=== PATIENT | female | born 1970 | race Caucasian/White ===

== ENCOUNTER 2022-07-08 06:26 | Day surgery (SDC) | payer BC, SELFPAY ==
[2022-07-08] VITALS (10 sets, daily range): BP systolic 120–139; BP diastolic 80–87; PULSE 89–100; RESP 12–16; TEMP 36.3–36.9; O2SAT 97–100; BMI 34.9
[2022-07-08] MEDS: LIDOCAINE 1% MDV INJECTION (07:05)
[2022-07-08] MEDS: BUPIVACAINE 0.5% 30 ML INJECTION (07:05)
[2022-07-08] MEDS: ETHYL CHLORIDE 1 APPLICATION 1 APPLIC TOPICAL (07:05)
--- NOTE | 2022-07-08 07:49 | SUR.PREOP ---
SAME DAY SURGERY LOCAL INJECTION SITE VERIFICATION WAS PERFORMED BY SURGEON/PA AND PATIENT PRIOR TO LOCAL ANESTHETIC BEING INJECTED TO OPERATIVE SITE.
--- NOTE | 2022-07-08 08:02 | PM.ORPRC ---
Procedure Note Date of procedure: 07/08/22 Procedure: PREOPERATIVE DIAGNOSIS: 1. Right 2nd toe benign mass/cyst (suspect mucous cyst) POSTOPERATIVE DIAGNOSIS: 1. Right 2nd toe benign mass/cyst (suspect mucous cyst) PROCEDURE: 1. Right 2nd toe benign mass/cyst open excision (less than 1 sq cm) 2. Right 2nd toe Rotation flap for skin coverage where cyst was excised (less than 10 sq cm) SURGEON: Gael Davila MD. ARCHITECTURAL TECHNOLOGIST: HEENA Balderas - Of note, an political science research assistant was critical for this case to aid in patient positioning, tissue retraction, limb manipulation/positioning, and closure. ANESTHESIA: Local anesthetic (50:50 mixture of 2% lidocaine plain and 0.5% marcaine plain)-8 mL total IMPLANTS: None TOURNIQUET: 15 minutes of digital tourniquet use COMPLICATIONS: None evident INDICATIONS: The patient is a pleasant 52-year-old female who has experienced right dorsal 2nd toe cyst recurrence. This has spontaneously ruptured in the past with the gelatinous fluid. Now, the cyst has recurred and is both the somewhat painful bother while wearing shoes but also an annoyance for the patient. Nonoperative management has been tried but unsuccessful. Given the failure of nonoperative management, and how this affects daily life, surgery was recommended. DESCRIPTION OF PROCEDURE: Following a thorough discussion of risks, benefits, and alternatives consent was obtained and the operative extremity was marked. The patient was brought to the operating room and placed supine on the operating table. No antibiotics were administered as this was planned to be a local case only. Proper time-out was performed identifying proper patient, site, and procedure. The operative extremity was prepped and draped in the appropriate sterile fashion using ChloraPrep. The limb was exsanguinated and the tourniquet inflated. A curvilinear incision was made along the medial border of the 2nd toe arcing then transversely across the D IP joint region. The cyst was then excised in a pie she manner with the apex of the pie aiming towards the concave surface of the curvilinear incision base. The excised portion was less than 1 sq cm. This was sent for permanent pathology. We mobilize the rotation flap on the dorsal aspect of the toe to help with skin coverage, which measured approximately 2.5 sq cm. Beyond this, we identified the extensor tendon and protected this throughout the case. Just medial to this the capsule was entered sharply with a 15 blade scalpel. A rongeur was also utilized to help debride some of capsular tissue in the medial aspect but also the dorsal medial aspect of the PIP joint. A rasp was utilized to smooth this off as well. Indeed a mucous gelatinous type of cystic structure was encountered at this level and decompressed. Thorough irrigation normal saline was then performed. Closure performed with 3-0 nylon in interrupted fashion. The digital tourniquet was released. Good capillary refill noted. Hemostasis achieved. PLAN: 1. Encourage elevation of the operative extremity. 2. Range of motion of the operative extremity/digits as tolerated. 3. Ibuprofen, acetaminophen and/or percocet as needed for pain. 4. Follow up with PA visit in 12-16 days for wound check and suture removal.
== END 2022-07-08 08:24 | disposition home or self-care (01) ==
PROVIDERS: PCP Family Medicine; Visit Provider Orthopaedic Surgery Sports Medicine
PROC: (CPT 26860; principal; 2022-07-08 07:30)
DX: L72.8 Other follicular cysts of the skin and subcutaneous tissue (principal)
CPT/HCPCS: 14040; 88304; J3490

== ENCOUNTER 2023-05-05 14:30 | Outpatient (RCR) | payer BC, SELFPAY | END 2023-06-24 14:33 | disposition home or self-care (01) | PROVIDERS: PCP Family Medicine; Visit Provider Family Medicine | DX: M54.2 Cervicalgia (principal); M62.81 Muscle weakness (generalized); Z51.89 Encounter for other specified aftercare | CPT/HCPCS: 97140; 97161 ==

== ENCOUNTER 2023-11-17 07:46 | Outpatient (CLI) | payer BC, SELFPAY ==
--- OUTSIDE RECORDS SUMMARY | 2023-11-22 05:21 | XMS_ITS | Clinical Summary ---
Author Name Unknown Organization [employer] [facility] Address [place], [place] [address] Care Team Providers Care Can Labeler Name Role Phone Pcp, No Primary Care Provider Unavailabl e Family History Medical History Relation Name Comments Cancer-breast No Family History Cancer-ovarian No Family History Social History Tobacco Use Types Packs/Day Years Used Date Smoking Tobacco: Never Assessed Sex and Gender Information Value Date Recorded Sex Assigned at Not on file Gender Identity Not on file Sexual Orientation Not on file Obstetrics History Plan of Treatment Health Maintenance Due Date Last Done Comments COVID-19 vaccine series (#1) 1971 Tdap 1982 Depression screening for age 12+ 1983 HIV for age 15-65 1986 BMI (ht and wt on same day) for age 18+ 1989 Hepatitis C screening for age 18-79 1989 Tetanus booster 1991 Colonoscopy through age 75 02/29/2016 Lipids for age 45-75 02/29/2016 Mammogram for age 45-75 11/16/2018 11/16/2017 Zoster (shingles) series for age 50+ (1 of 2) 2021 Pap test for age 21-65 07/11/2022 9, 07/11/2019, 06/18/2015, Additional history exists Influenza for age 50-64 07/09/2023 Pneumococcal series for age 6-64 Aged Out No longer eligible based on patient's age to complete this topic Care Teams Can Labeler Relationship Specialty Start Date End Date Pcp, No . PCP - General 07/19/12
--- OUTSIDE RECORDS SUMMARY | 2023-11-22 05:21 | XMS_ITS | Encounter Summary ---
Author Name Unknown Organization [facility] Address [address], [place] [address] Care Team Providers Care Food Service Team Member Name Role Phone Nicolás Fuentes MD Primary Care Provider Reason for Visit * Reason Comments Video Visit Band Surg Followup Follow-up BOT / MWM Encounter Details Date Type Department Care Team Description 10/27/2023 10:30 AM CUT OFF WORKER Telemedicine [facility] [address] [place], [place] [id number] Gopal Luna PA-C [address] [facility] [address] [place], [place] [phone] Depressive disorder (Primary Dx); Obesity (BMI 30-39.9) ([facility]); Abnormal weight gain; Personal history of endocrine disorder; Screening for diabetes mellitus Social History Tobacco Use Types Packs/Day Years Used Date Smoking Tobacco: Never Smokeless Tobacco: Never Alcohol Use Standard Drinks/Week Comments Yes 7 (1 standard drink = 0.6 oz pur e alcohol) Sex and Gender Information Value Date Recorded Sex Assigned at Not on file Gender Identity Not on file Sexual Orientation Not on file documented as of this encounter Last Filed Vital Signs Vital Sign Reading Time Taken Comments Blood Pressure - - Pulse - - Temperature - - Respiratory Rate - - Oxygen Saturation - - Inhaled Oxygen Concentration - - Weight 104.3 kg (230 lb) 10/27/2023 9:19 AM CUT OFF WORKER Height 170.2 cm (5' 7) 10/27/2023 9:19 AM CUT OFF WORKER Body Mass Index 36.02 10/27/2023 9:19 AM CUT OFF WORKER documented in this encounter Patient Instructions * Patient Instructions* Gopal Luna PA-C - 10/27/2023 10:30 AM CUT OFF WORKER Weight Management Lab Instructions- Please have these done at least 1 week prior to your next weight follow up. Instructions for lab draws include the following: No vitamins or supplements for 24 hours prior to the test No alcohol for 24 hours prior to the test You must fast (no food or fluids other than water) for 12 hours prior to the test. You may call [phone] to schedule a lab appointment; however, the labs do allow walk-in visits. OFF WORKER documented in this encounter Progress Notes * Gopal Luna PA-C - 10/27/2023 10:30 AM CST Lap Band Post-Operative Follow Up Date of Visit: 10/27/2023 This visit was conducted as telehealth visit using a synchronous audiovideo link. SUBJECTIVE: This 53 y.o. year-old female with chronic medical problems including obesity, history of depressionpresents for routine postoperative followup status post Adjustable Gastric Band. Patient was last seen in November 2020.She had been taking phentermine and topiramate and had also briefly worked with bariatric psychologist for emotional aspects of eating. Patient returns to resume work on weight loss. She typically does not eat breakfast. She will bring healthy food options for lunch at work. Dinner is sometimes more snacking than an actual meal. Patient reports drinking 2-3 glasses of wine daily. She takes bupropion 300 mg for depression. Discussed medication options and potential conversion s urgery. Patient is open to another surgery now. Patient's lap band is empty, and she denies any symptoms of band complications. Bariatric Weight History and Calculations Weight History Starting Weight: 271 lb 14.4 oz Current Weight: 230 lb Height (in): 67 Weight Calculations Excess Weight: 127 lb 6.4 oz Current Weight Loss: 41 lb 14.4 oz Goal Weight: 144 lb 8 oz Starting BMI: 42.67 Percent Exess Weight Loss: 33 Current BMI: 36.1 Percent Totoal Body Weight Loss: 15 Date of Original Surgery: 03/08/2008 Type of Original Surgery: APS band Date of Revisional surgery: Type: None Focuses on eating protein at most meals: Yes Fluid intake averages 48-64 oz oz per day. Exercise: What are you doing for exercise?: Walking, Other Physical activity: I haven't been doing a lot. The goal is to increase this REVIEW OF SYSTEMS: Patient is experiencing the following symptoms/problems: Emotional Eating, Joint Pain PAST MEDICAL HISTORY: Past Medical History: Diagnosis Date Laparoscopic adjustable gastric band, APS 03/08/2008 Laparoscopic adjustable gastric band, APS 03/08/2008 Overweight(278.02) ([facility]) 11/05/2011 MEDICATIONS: cholecalciferol (AKA VITAMIN D3) 2000 UNITS tablet, Take 1,000 Tablets by mouth Daily., , Disp: , Rfl: levothyroxine (SYNTHROID) 137 MCG tablet, Take 137 mcg by mouth daily., Note (05/26/2017): Received from: External Pharmacy Received Sig: TAKE ONE TABLET BY MOUTH DAILY, Disp: , Rfl: 3 Multiple Vitamins-Minerals (THERAPEUTIC MULTIVIT/MINERAL) tablet, Take 1 tablet by mouth daily (every 24 hours). (Patient not taking: Reported on 09/13/2020), , Disp: 100, Rfl: Phentermine HCl (ADIPEX-P) 37.5 MG tablet, Take 0.5 Tablets by mouth daily before breakfast., , Disp: 60 Tablet, Rfl: 0 topiramate (TOPAMAX) 50 MG tablet, TAKE 1 TABLET BY MOUTH TWICE DAILY, , Disp: 180 Tablet, Rfl: 0 venlafaxine (EFFEXORXR) 37.5 MG 24 hour release capsule, TAKE 1 CAPSULE (37.5 MG) PO DAILY, Note (08/06/2017): Received from: External Pharmacy, Disp: , Rfl: 0 No current facility-administered medications on file as of 10/27/2023. ADR/ALLERGIES: Other, Review contrast media, and Review food intolerance SOCIAL HISTORY: Social History Socioeconomic History Marital status: Single Spouse name: Not on file Number of children: Not on file Years of education: Not on file Highest education level: Not on file Occupational History Not on file Tobacco Use Smoking status: Never Smokeless tobacco: Never Vaping Use Vaping Use: Never used Substance and Sexual Activity Alcohol use: Yes Alcohol/week: 7.0 - 14.0 standard drinks of alcohol Types: 7 - 14 Glasses of wine per week Drug use: No Sexual activity: Not on file Other Topics Concern Bike Helmet Not Asked City Water Not Asked Exercise Not Asked Guns in home Not Asked Seat Belt Not Asked Special Diet Not Asked Weight Concern Not Asked Social History Narrative Not on file Social Determinants of Health Financial Resource Strain: Not on file Food Insecurity: Not on file Transportation Needs: Not on file Intimate Partner Violence: Not on file Housing Stability: Not on file Patient Employment Employer: Address: City: State: Zip: Phone: Occupation: Employee?: No OBJECTIVE: Ht 5' 7 (170.2 cm) Wt 230 lb (162857 g) BMI 36.02 kg/m?? BMI: Estimated body mass index is 36.02 kg/m?? as calculated from the following: Height as of this encounter: 5' 7 (170.2 cm). Weight as of this encounter: 230 lb (478404 g). Vital Signs: There were no vitals taken for this visit. (Vitals not measured in clinic due to nature of telehealth visit). General: NAD Respiratory: No distress is noted Psych: No evidence of overt anxiety or depression. Skin: No rashes on exposed skin LABORATORY STUDIES: None are available at the time of appointment. Band adjustment section Adjustment None date of last adjustment: 09/20/20 amount volume after last adjustment: 0 ml ASSESSMENT: We will continue to treat the patient's obesity, obesity-associated medical conditions, and conditions exacerbated by or contributing to weight gain by aggressive management of weight: ICD-10-CM 1. Depressive disorder F32.A 2. Obesity (BMI 30-39.9) ([facility]) E66.9 3. Abnormal weight gain R63.5 Insulin, Serum Hgb A1c Glucose 4. Personal history of endocrine disorder Z86.39 Insulin, Serum 5. Screening for diabetes mellitus Z13.1 Hgb A1c Glucose Plan Insurance benefit verification mailed to patient to determine coverage for potential conversion surgery Patient will consider RD appointment Naltrexone 25 mg daily - side effects discussed Will screen for diabetes/prediabetes Return to the clinic in 3 months, sooner p.r.n. problems or concerns. Patient is especially encouraged to return to the clinic if failing to lose further weight. At the beginning of the visit, I discussed with the patient/parent that this visit is a telehealth visit that will be billed to their insurance. I reviewed potential benefits, risks, and confidentiality of telehealth visits. We made a contingency plan in the event of technical problems. I explainedthat the appropriateness of telehealth visits is determined by the provider and that patient may need to be seen in clinic in the future. They consented to proceed. This service was provided via telehealth and conducted using a synchronous audiovideo link. Patient location: home Provider location: clinic Total time for visit was 30 minutes including rkn-[id number]-[id number]-face time spent reviewing medical records, counseling, documentation, placing orders, and coordination of care. Gopal Luna PA-C OFF WORKER documented in this encounter Nursing Notes * Eze Wilkinson MA - 10/27/2023 10:30 AM CST Patient has completed mobile check in process. Last seen on 12/04/20 with recorded weight of 202 lbs. Weight History: Bariatric Weight History and Calculations Weight History Starting Weight: 271 lb 14.4 oz Current Weight: 230 lb Height (in): 67 Weight Calculations Excess Weight: 127 lb 6.4 oz Current Weight Loss: 41 lb 14.4 oz Goal Weight: 144 lb 8 oz Starting BMI: 42.67 Percent Exess Weight Loss: 33 Current BMI: 36.1 Percent Totoal Body Weight Loss: 15 Measurements Do you have a scale? YES - 230 lb. Do you have a BP cuff? NO Eating patterns Patient is experiencing the following symptoms/problems: Emotional Eating, Joint Pain Medications: Compliance: NA Side effects: NO Patient would like to discuss: Options for medications Eze Wilkinson MA 9:20 AM 10/27/2023 OFF WORKER documented in this encounter Plan of Treatment Upcoming Encounters Date Type Department Care Team Description 01/18/2024 2:40 PM CDT Telemedicine [facility] [address] [facility] [address] [address] [place] [address] Gopal Luna PA-C [address] [facility] [address] [place] [address] Scheduled Orders Name Type Priority Associated Diagnoses Orde r Schedule Insulin, Serum Lab Routine Abnormal weight gain Personal history of endocrine disorder Expected: 10/27/2023, Expires: 04/27/2024 Hgb A1c Lab Routine Abnormal weight gain Screening for diabetes mellitus Expected: 10/27/2023, Expires: 04/27/2024 Glucose Lab Routine Abnormal weight gain Screening for diabetes mellitus Expected: 10/27/2023, Expires: 04/27/2024 documented as of this encounter Visit Diagnoses Diagnosis Depressive disorder- Primary Depressive disorder, not elsewhere classified Obesity (BMI 30-39.9) ([facility]) Obesity, unspecified Abnormal weight gain Personal history of endocrine disorder Personal history of other endocrine, metabolic, and immunity disorders Screening for diabetes mellitus documented in this encounter Care Teams Food Service Team Member Relationship Specialty Start Date End Date Nicolás [place] [address] [place] [address] PCP - General 02/07/11 documented as of this encounter
--- OUTSIDE RECORDS SUMMARY | 2023-11-22 05:21 | XMS_ITS | Clinical Summary ---
Author Name Unknown Organization [facility] Address [address] [place] [address] Care Team Providers Care Boat Motor Mechanic Name Role Phone Nicolás Fuentes MD Primary Care Provider Source Comments You are receiving this document as you are listed as the primary care provider,follow-up provider, or the patient has been referred to you for consultation.This is in compliance with the Medicare and[facility] EHR Incentive Program,which states Providers who transition their patient to another setting of careor provider of care or refers their patient to another provider of care shouldprovide summary care record for each transition of care or referral. [facility] Allergies Active Allergy Reactions Criticality Noted Date Comments Other 03/28/1996 PN: LW Other1: -NKA Review Contrast Media 03/28/1996 PN: LW CM1: CONTRAST- NKA Reaction : Review Food Intolerance 09/11/2010 PN: LW FI1: NKA Medications Medication Sig Dispensed Refills Start Date End Date Status Multiple Vitamins-Minerals (THERAPEUTIC MULTIVIT/MINERAL) tablet Take 1 tablet by mouth daily (every 24 hours). 100 0 09/11/2010 Active cholecalciferol (AKA VITAMIN D3) 2000 UNITS tablet Take 1,000 Tablets by mouth Daily. 0 02/01/2013 Active levothyroxine (SYNTHROID) 137 MCG tablet Take 137 mcg by mouth daily. 3 04/05/2017 Active venlafaxine (EFFEXORXR) 37.5 MG 24 hour release capsule TAKE 1 CAPSULE (37.5 MG) PO DAILY 0 07/09/2017 Active Phentermine HCl (ADIPEX-P) 37.5 MG tablet Take 0.5 Tablets by mouth daily before breakfast. 60 Tablet 0 01/07/2021 Active topiramate (TOPAMAX) 50 MG tablet TAKE 1 TABLET BY MOUTH TWICE DAILY 180 Tablet 0 03/03/2021 Active naltrexone (REVIA) 50 MG tablet Take 0.5 Tablets (25 mg) by mouth daily. 45 Tablet 1 10/27/2023 Active Active Problems Problem Noted Date Diagnosed Date Overweight 11/05/2011 Overview: Overweight(278.02) ([facility]) Bariatric surgery status 03/08/2008 Overview: Demetrius Pedro M.D. at [facility] [place] Laparoscopic adjustable gastric band, APS Encounters Date Type Department Care Team Description 10/27/2023 10:30 AM PULMONARY FUNCTION TECHNOLOGIST Telemedicine [facility] [address] [place] [address] [address] [place] [address] Gopal Luna PA-C Depressive disorder (Primary Dx); Obesity (BMI 30-39.9) ([facility]); Abnormal weight gain; Personal history of endocrine disorder; Screening for diabetes mellitus from Last 3 Months Immunizations Name Administration Dates Next Due Measles 02/21/1986 Rubella 02/21/1986 Social History Tobacco Use Types Packs/Day Years Used Date Smoking Tobacco: Never Smokeless Tobacco: Never Alcohol Use Standard Drinks/Week Comments Yes 7 (1 standard drink = 0.6 oz pur e alcohol) Sex and Gender Information Value Date Recorded Sex Assigned at Not on file Gender Identity Not on file Sexual Orientation Not on file Last Filed Vital Signs Vital Sign Reading Time Taken Comments Blood Pressure 135/92 10/22/2020 8:29 AM PULMONARY FUNCTION TECHNOLOGIST per record from outside facililty Pulse 80 10/22/2020 8:29 AM PULMONARY FUNCTION TECHNOLOGIST Temperature - - Respiratory Rate - - Oxygen Saturation - - Inhaled Oxygen Concentration - - Weight 104.3 kg (230 lb) 10/27/2023 9:1 9 AM PULMONARY FUNCTION TECHNOLOGIST Height 170.2 cm (5' 7) 10/27/2023 9:19 AM PULMONARY FUNCTION TECHNOLOGIST Body Mass Index 36.02 10/27/2023 9:19 AM PULMONARY FUNCTION TECHNOLOGIST Plan of Treatment Upcoming Encounters Date Type Department Care Team Description 01/18/2024 2:40 PM CDT Telemedicine [facility] [address] [facility] [address] [facility] [place] [address] Gopal Luna PA-C [address] [facility] [address] [place] [address] Health Maintenance Due Date Last Done Comments Cervical Cancer Screening Due 1971 Colon Cancer Screening Plan Due 1971 Hep C Screening ([facility]) 1971 HepB (1) 1971 Mammogram 1971 COVID-19 Vaccine (#1) 1971 HIV Screening (Preventive Services) 1987 Adult Preventive Visit 1989 Diabetes Screening- (based on age and BMI) 02/02/2016 02/01/2013, 09/11/2010 Cholesterol 02/29/2016 Influenza (#1) 2023 11/17/2023, 01/2021, 09/10/2021, Additional history exists DTaP/Tdap/Td (4 - Tdap) 03/26/2031 03/26/20, 09/25/2019, 01/30/2010 Zoster/Shingles Completed 12/04/2021, 09/10/2021 HepA Aged Out No longer eligi ble based on patient's age to complete this topic Hib Aged Out No longer eligi ble based on patient's age to complete this topic IPV (Polio) Aged Out No longer eligi ble based on patient's age to complete this topic MCV4 Aged Out No longer eligi ble based on patient's age to complete this topic Pneumococcal Aged Out No longer eligi ble based on patient's age to complete this topic Care Teams Boat Motor Mechanic Relationship Specialty Start Date End Date Nicolás [place] [address] [address] PCP - General 02/07/11
== END 2023-11-17 07:47 | disposition home or self-care (01) ==
LOC: NFLDREF 11-22 05:19
PROVIDERS: PCP Family Medicine; Referring Provider Family Medicine; Visit Provider Family Medicine
DX: E03.9 Hypothyroidism, unspecified (principal); E55.9 Vitamin D deficiency, unspecified; E78.5 Hyperlipidemia, unspecified; M81.0 Age-related osteoporosis without current pathological fracture; Z13.9 Encounter for screening, unspecified
CPT/HCPCS: 80053; 80061; 82306; 84443

== ENCOUNTER 2023-12-03 11:35 | Outpatient (CLI) | payer BC, SELFPAY ==
--- OUTSIDE RECORDS SUMMARY | 2023-12-03 11:37 | XMS_ITS | Encounter Summary ---
Author Name Unknown Organization [facility] Address [address], [place] [address] Care Team Providers Care Metal Loader Name Role Phone Nicolás Fuentes MD Primary Care Provider Reason for Visit * Reason Comments Video Visit Band Surg Followup Follow-up BOT / MWM Encounter Details Date Type Department Care Team Description 10/27/2023 10:30 AM STRETCHER LEVELER OPERATOR HELPER Telemedicine [facility] [address] [facility] [facility] [address] [place], [place] [phone] Gopal Luna PA-C [address] [facility] [address] [place], [place] [id number] Depressive disorder (Primary Dx); Obesity (BMI 30-39.9) [...] 104.3 kg (230 lb) 10/27/2023 9:19 AM STRETCHER LEVELER OPERATOR HELPER Height 170.2 cm (5' 7) 10/27/2023 9:19 AM STRETCHER LEVELER OPERATOR HELPER Body Mass Index 36.02 10/27/2023 9:19 AM STRETCHER LEVELER OPERATOR HELPER documented in this encounter Patient Instructions * Patient Instructions* Gopal Luna PA-C - 10/27/2023 10:30 AM STRETCHER LEVELER OPERATOR HELPER Weight Management Lab Instructions- Please have these [...] prior to the test. You may call [phone] to schedule a lab appointment; however, the labs do allow walk-in visits. TCHER LEVELER OPERATOR HELPER documented in this encounter Progress Notes * [...] 5' 7 (170.2 cm) Wt 230 lb (726556 g) BMI 36.02 kg/m?? BMI: Estimated body mass index is 36.02 kg/m?? as calculated from the following: Height as of this encounter: 5' 7 (170.2 cm). Weight as of this encounter: 230 lb (494815 g). Vital Signs: There were no vitals [...] Depressive disorder F32.A 2. Obesity (BMI 30-39.9) ([facility]) E66.9 3. Abnormal weight gain R63.5 [...] time for visit was 30 minutes including [id number]-face time spent reviewing medical records, counseling, documentation, placing orders, and coordination of care. Gopal Luna PA-C TCHER LEVELER OPERATOR HELPER documented in this encounter Nursing Notes * [...] medications Eze Wilkinson MA 9:20 AM 10/27/2023 TCHER LEVELER OPERATOR HELPER documented in this encounter Plan of Treatment Upcoming Encounters Date Type Department Care Team Description 01/18/2024 2:40 PM CDT Telemedicine [facility] [address] [facility] [address] [place] [address] Gopal Luna PA-C [address] [facility] [address] [place] [address] Scheduled Orders Name Type Priority Associated Diagnoses [...] disorder, not elsewhere classified Obesity (BMI 30-39.9) ([facility]) Obesity, unspecified Abnormal weight gain Personal history of endocrine disorder Personal history of other endocrine, metabolic, and immunity disorders Screening for diabetes mellitus documented in this encounter Care Teams Metal Loader Relationship Specialty Start Date End Date Nicolás [place] [address] [place] [address] PCP - General 02/07/11 documented as of this encounter
--- OUTSIDE RECORDS SUMMARY | 2023-12-03 11:37 | XMS_ITS | Clinical Summary ---
Author Name Unknown Organization [employer] [facility] Address [place], [place] [address] Care Team Providers Care Infantry Assaultman Name Role Phone Pcp, No Primary Care [...] age to complete this topic Care Teams Infantry Assaultman Relationship Specialty Start Date End Date Pcp, No . PCP - General 07/19/12
--- OUTSIDE RECORDS SUMMARY | 2023-12-03 11:37 | XMS_ITS | Clinical Summary ---
Author Name Unknown Organization [facility] Address [address] [place] [address] Care Team Providers Care Silk Top Hat Body Maker Name Role Phone Nicolás Fuentes MD Primary Care Provider Source Comments You are receiving this document as you are listed as the primary care provider,follow-up provider, or the patient has been referred to you for consultation.This is in compliance with the Medicare and[facility] EHR Incentive Program,which states Providers who transition their patient to another setting of careor provider of care or refers their patient to another provider of care shouldprovide summary care record for each transition of care or referral. Coinplug Allergies Active Allergy Reactions Criticality Noted Date [...] Date Diagnosed Date Overweight 11/05/2011 Overview: Overweight(278.02) ([facility]) Bariatric surgery status 03/08/2008 Overview: Demetrius Pedro M.D. at [facility] ; Laparoscopic adjustable gastric band, APS Encounters Date Type Department Care Team Description 10/27/2023 10:30 AM GENETICS NURSE Telemedicine [facility] [address] [place] [address] [address] [place] [address] Gopal Luna PA-C Depressive disorder (Primary Dx); Obesity (BMI 30-39.9) ([facility]); Abnormal weight gain; Personal history of endocrine [...] Comments Blood Pressure 135/92 10/22/2020 8:29 AM GENETICS NURSE per record from outside facililty Pulse 80 10/22/2020 8:29 AM GENETICS NURSE Temperature - - Respiratory Rate - - Oxygen Saturation - - Inhaled Oxygen Concentration - - Weight 104.3 kg (230 lb) 10/27/2023 9:1 9 AM GENETICS NURSE Height 170.2 cm (5' 7) 10/27/2023 9:19 AM GENETICS NURSE Body Mass Index 36.02 10/27/2023 9:19 AM GENETICS NURSE Plan of Treatment Upcoming Encounters Date Type Department Care Team Description 01/18/2024 2:40 PM CDT Telemedicine [facility] [address] [facility] [place] [address] Gopal Luna PA-C [address] [facility] [address] [place] [address] Health Maintenance Due Date Last Done Comments Cervical Cancer Screening Due 1971 Colon Cancer Screening Plan Due 1971 Hep C Screening (Preventive Services) 1971 HepB (1) 1971 Mammogram 1971 COVID-19 Vaccine (#1) 1971 HIV Screening (Preventive Services) 1987 Adult Preventive Visit 1989 Diabetes Screening- (based on age and BMI) 02/02/2016 02/01/2013, 09/11/2010 Cholesterol 02/29/2016 DTaP/Tdap/Td (4 - Tdap) 03/26/2031 03/26/20 21, 09/25/2019, 01/30/2010 Zoster/Shingles Completed 12/04/2021, 09/10/2021 Influenza Completed 11/17/2023, 01/2021, 09/10/2021, Additional history exists HepA Aged Out No longer eligi ble [...] age to complete this topic Care Teams Silk Top Hat Body Maker Relationship Specialty Start Date End Date Nicolás [place] [address] [address] PCP - General 02/07/11
--- NOTE | 2023-12-03 12:34 | W.ANESCHARGE ---
Anesthesia Charges Start Date/Time Anesthesia Start Date: 12/03/23 Anesthesia Start Time: 12:18 Stop Date/Time Anesthesia Stop Date: 12/03/23 Anesthesia Stop Time: 12:36
--- NOTE | 2023-12-03 12:39 | W.ANESCHARGE ---
Anesthesia Charges Start Date/Time Anesthesia Start Date: 12/03/23 Anesthesia Start Time: 12:18 Stop Date/Time Anesthesia Stop Date: 12/03/23 Anesthesia Stop Time: 12:36
== END 2023-12-03 11:36 | disposition home or self-care (01) ==
LOC: OP CLINIC 11:35
PROVIDERS: PCP Family Medicine; Visit Provider Internal Medicine
DX: Z12.11 Encounter for screening for malignant neoplasm of colon (principal); K57.30 Diverticulosis of large intestine without perforation or abscess without bleeding
CPT/HCPCS: 00811; 00812; 45378; J2704

== ENCOUNTER 2024-02-01 14:51 | Outpatient (CLI) | payer BC, SELFPAY ==
--- NOTE | 2024-02-01 15:00 | MM_ITS ---
Patient: CARMELITA LOWE Facility:?[facility] Patient ID:?[id number] Site Patient ID:?[id number]. Site :?1970 Study:?XRay-Breast Bilateral 3D W/CAD-02/01/2024 3:17:37 PM Ordering Physician:?Catrachita Arnold Final Report: BILATERAL SCREENING MAMMOGRAM WITH COMPUTER-AIDED DETECTION AND TOMOSYNTHESIS TECHNIQUE: CC and MLO views were obtained. These mammographic images have been obtained using full-field digital technique. These mammographic images were interpreted with the benefit of computer-aided detection. Breast Tomosynthesis was used in this interpretation. COMPARISON FILM: 10/07/21, 09/06/20, 07/25/19. FINDINGS: There are scattered areas of fibroglandular density. IMPRESSION: There is no radiographic evidence for malignancy. ASSESSMENT: BI-RADS Category 2: Benign RECOMMENDATION: Routine screening mammogram in 1 year. A lay language report of this examination will be provided to the patient. Joe Gann M.D. Diagnostic Radiologist [email or web address] DSM/sp R& Transcribed: 5:10 p.m. SP/Dictated by: Joe Gann MD @ 02/10/2024 10:51:00 AM Signed by:?Joe Gann MD @02/10/2024 8:24:32 PM (Electronic Signature)
== END 2024-02-01 14:52 | disposition home or self-care (01) ==
LOC: MAMMO 14:51
PROVIDERS: PCP Family Medicine; Visit Provider Family Medicine
DX: Z12.31 Encounter for screening mammogram for malignant neoplasm of breast (principal)
CPT/HCPCS: 77063; 77067

== ENCOUNTER 2024-03-01 08:11 | Outpatient (CLI) | payer BC, SELFPAY ==
--- OUTSIDE RECORDS SUMMARY | 2024-03-01 08:17 | XMS_ITS | Clinical Summary ---
Author Name Unknown Organization [facility] Address [address] [place] [address] Care Team Providers Care Hollock Maker Name Role Phone Nicolás Fuentes MD Primary Care Provider Source Comments You are receiving this document as you are listed as the primary care provider,follow-up provider, or the patient has been referred to you for consultation.This is in compliance with the Medicare and[facility] EHR Incentive Program,which states Providers who transition their patient to another setting of careor provider of care or refers their patient to another provider of care shouldprovide summary care record for each transition of care or referral. [place] Allergies Active Allergy Reactions Criticality Noted Date Comments Other 03/28/1996 PN: LW Other1: -NKA Review Contrast Media 03/28/1996 PN: LW CM1: CONTRAST- NKA Reaction : Review Food Intolerance 09/11/2010 PN: LW FI1: NKA Medications Medication Sig Dispensed Refills Start Date End Date Status Multiple Vitamins-Minerals (THERAPEUTIC MULTIVIT/MINERAL) tablet Take 1 tablet by mouth daily (every 24 hours). 100 09/11/2010 Active cholecalciferol (AKA VITAMIN D3) 2000 UNITS tablet Take 1,000 Tablets by mouth Daily. 02/01/2013 Active levothyroxine (SYNTHROID) 137 MCG tablet Take 1 Tablet (137 mcg) by mouth daily. 3 04/05/2017 Active venlafaxine (EFFEXORXR) 37.5 MG 24 hour release capsule TAKE 1 CAPSULE (37.5 MG) PO DAILY 0 07/09/2017 Active Phentermine HCl (ADIPEX-P) 37.5 MG tablet Take 0.5 Tablets by mouth daily before breakfast. 60 Tablet 01/07/2021 Active topiramate (TOPAMAX) 50 MG tablet TAKE 1 TABLET BY MOUTH TWICE DAILY 180 Tablet 03/03/2021 Active naltrexone (REVIA) 50 MG tablet Take 1 Tablet (50 mg) by mouth daily. 90 Tablet 1 01/18/2024 Active Active Problems Problem Noted Date Diagnosed Date Overweight 11/05/2011 Overview: Overweight(278.02) ([facility]) Bariatric surgery status 03/08/2008 Overview: Demetrius Pedro M.D. at [facility] ; Laparoscopic adjustable gastric band, APS Encounters Date Type Department Care Team Description 01/18/2024 2:40 PM CDT Telemedicine [facility] [address] [facility] [address] [place] [address] Gopal Luna PA-C Depressive disorder (Primary Dx); Obesity (BMI 30-39.9) ([facility]); LAP-BAND surgery status 01/17/2024 E-Visit [facility] [address] [place] [address] [address] Mychart, Generic Provider from Last 3 Months Immunizations Name Administration [...] Comments Blood Pressure 135/92 10/22/2020 8:29 AM AFTER SCHOOL PROGRAM ASSISTANT per record from outside facililty Pulse 80 10/22/2020 8:29 AM AFTER SCHOOL PROGRAM ASSISTANT Temperature - - Respiratory Rate - - Oxygen Saturation - - Inhaled Oxygen Concentration - - Weight 103 kg (227 lb) 01/18/2024 12:54 PM CDT Height 170.2 cm (5' 7) 01/18/2024 12:5 4 PM CDT Body Mass Index 35.55 01/18/2024 12:54 PM CDT Plan of Treatment Upcoming Encounters Date Type Department Care Team (Late st Contact Info) Description 04/18/2024 3:00 PM CDT Telemedicine [facility] [address] [facility] [address] [place] [address] Gopal Luna PA-C [address] [address] 05/16/2024 10:00 AM CDT Telemedicine [facility] [place] [address] [facility] [address] [place] [address] Gopal Luna PA-C [address] [facility] [address] [place], [place] [address] Health Maintenance Due Date Last Done Comments Cervical Cancer Screening Due 1971 Colon Cancer Screening Plan Due 1971 Hep C Screening (Preventive Services) 1971 Mammogram 1971 HIV Screening (Preventive Services) 1987 Adult Preventive Visit 1989 HepB (1) 1990 Diabetes Screening- (based on age and BMI) 02/02/2016 02/01/2013, 09/11/2010 Cholesterol 02/29/2016 DTaP/Tdap/Td (4 - Tdap) 03/26/2031 03/26/20 21, 09/25/2019, 01/30/2010 Zoster/Shingles Completed 12/04/2021, 09/10/2021 COVID-19 Vaccine Completed 11/17/2023, , 01/30/2021, Additional history exists Influenza Completed 11/17/2023, 01/2021, 07/25/2020, Additional history exists HepA Aged Out No [...] on patient's age to complete this topic Procedures Procedure Name Priority Date/Time Associated Diagnosis Comments HGB A1C Routine 02/01/2013 11:31 AM CDT Other and unspecified postsurgical nonabsorption from Last 3 Months or Most Recently Relevant to Health Maintenance Results * Hgb A1c (02/01/2013 11:31 AM CDT) HGB A1C 5.3 0.0 - 6.0 % HP CONVERSION 02/01/2013 11:3 1 AM CDT 02/01/2013 11:46 AM CDT Eloise Uribe PA-C LAB_1 HP CONVERSION from Last 3 Months or Most Recently Relevant to Health Maintenance Care Teams Hollock Maker Relationship Specialty Start Date End Date Nicolás [place] [address] [place] [address] PCP - General 02/07/11
--- OUTSIDE RECORDS SUMMARY | 2024-03-01 08:17 | XMS_ITS | Clinical Summary ---
Author Name Unknown Organization [facility] Address [place], [place] [address] Care Team Providers Care Emergency Medical Tech Name Role Phone Pcp, No Primary Care [...] Health Maintenance Due Date Last Done Comments Tdap 1982 Depression screening for age 12+ [...] 07/11/2022 9, 07/11/2019, 06/18/2015, Additional history exists COVID-19 vaccine series ( season) 2023 Influenza for age 50-64 07/09/2024 Pneumococcal series for age 6-64 Aged Out No longer eligible based on patient's age to complete this topic Procedures Procedure Name Priority Date/Time Associated Diagnosis Comments TUMBLER MACHINE OPERATOR THIN PREP PAP SCREEN IMAGED Routine 07/11/2019 9:00 AM CDT XR MAMMO MANUEL UNI DIAG RIGHT Routine 11/16/2017 4:19 PM STORE RECEIVING CLERK Abnormal mammogram from Last 3 Months or Most Recently Relevant to Health Maintenance Results * TUMBLER MACHINE OPERATOR THIN PREP PAP SCREEN IMAGED (07/11/2019 9:00 AM CDT) Case Report Gynecologic Cytology Report ? Case: [id number] ? Authorizing Provider: ??Tayler Schaefer ??Collected: ? 07/11/2019 0900 ? M, MD ? Ordering Location: ? [facility] ?Received: ?07/13/2019 0934 ? First Screen: ?Yvette Galdamez ? Specimen: ?TUMBLER MACHINE OPERATOR ThinPrep Vial Screening, Cervical/Vaginal ? 07/19/2019 12:55 PM CDT [facility] ENTRAL LABORATORY INTERPRETATION/ RESULT NEGATIVE FOR INTRAEPITHELIAL LESION OR MALIGNANCY (NIL) (none) 07/19/2019 12:55 PM CDT [facility] IMEN ADEQUACY Satisfactory for evaluation Endocervical component present Scant cellularity 07/19/2019 12:55 PM CDT [facility] HPV REQUEST HPV and PAP 07/19/2019 12:55 PM CDT [facility] Date of LMP 03/19/2019 07/19/2019 12:55 PM CDT [facility] Last Pap Date 06/18/2015 07/19/2019 12:55 PM CDT [facility] Last Pap Result NIL 12:55 PM CDT [facility] Menstrual Status 07/19/2019 12:55 PM CDT [facility] Comment:menopause Automated Review Successful 07/19/2019 12:55 PM CDT [facility] Comment:Specimen processed s uccessfully by automated cpr ambulance driver device, ThinPrep Imaging System, [employer] ANCILLARY TESTING TUMBLER MACHINE OPERATOR HPV Ordered, Please see separate report 07/19/2019 12:55 PM CDT [facility] Note The pap test is a screening technique, not a diagnostic procedure. ??It is used primarily to screen for squamous cancers and precursor lesions. ??Published studies have shown that it is subject to both false negative and false positive results. ??The pap test should not be used as the sole means to diagnose or exclude pre-malignant and malignant lesions. Cytology is screened and interpreted at [facility] - [address], [place] [address] and [facility] - [address] [place] [address]; [place] [address] and [facility] - [address]; [place] [address] and [facility] [address]; [place] [address] 07/19/2019 12:55 PM CDT [facility] Other (Cervical/Vagina l) 07/11/2019 9:00 AM CDT 07/13/2019 9:34 AM CDT Tayler Schaefer MD PATHOLOGY/ CYTOLOGY [facility] [address] [place] [address], [place] * XR MAMMO MANUEL UNI DIAG RIGHT (11/16/2017 4:19 PM STORE RECEIVING CLERK) Anatomical Region Laterality Modality BREASTS, Breast Right Mammograph y Impressions 11/17/2017 12:20 PM STORE RECEIVING CLERK ??BI-RADS Category 1: Negative RECOMMENDATION: ??Annual screening mammogram. Vale Brooks M.D. Body/Breast Radiologist [employer] [email or web address] [email or web address] / Narrative 11/17/2017 12:20 PM STORE RECEIVING CLERK DIGITAL DIAGNOSTIC RIGHT MAMMOGRAM USING TOMOSYNTHESIS, 11/16/2017 RIGHT BREAST ULTRASOUND, 11/16/2017 CLINICAL HISTORY: ??Asymmetry RIGHT breast. ? COMPARISON: ??11/16/17, 12/11/16, 06/21/15. TECHNIQUE: ??These mammographic images have been obtained using digital tomographic technique. FINDINGS: ??Tissue density is scattered fibroglandular. ??No suspicious findings for malignancy. ?? Ros Pearce MD MAMMO from Last 3 Months or Most Recently Relevant to Health Maintenance Care Teams Emergency Medical Tech Relationship Specialty Start Date End Date Pcp, No . PCP - General 07/19/12
--- OUTSIDE RECORDS SUMMARY | 2024-03-01 08:17 | XMS_ITS | Encounter Summary ---
Author Name Unknown Organization [facility] Address [address] [place] [address] Care Team Providers Care Spare Person Name Role Phone Nicolás Fuentes MD Primary Care Provider Encounter Details Date Type Department Care Team (Late Contact Info) Description 01/17/2024 E-Visit [facility] [address] [facility] [address] [place] [address] [place] [address] Social History Tobacco Use Types Packs/Day Years Used Date Smoking Tobacco: Never Smokeless Tobacco: Never Alcohol Use Standard Drinks/Week Comments Yes 7 (1 standard drink = 0.6 oz pur e alcohol) Sex and Gender Information Value Date Recorded Sex Assigned at Not on file Gender Identity Not on file Sexual Orientation Not on file documented as of this encounter Plan of Treatment Upcoming Encounters Date Type Department Care Team (Late Contact Info) Description 04/18/2024 3:00 PM CDT Telemedicine [facility] [address] [facility] [address] [place] [address] Gopal Luna PA-C [address] [facility] [address] [place] [address] 05/16/2024 10:00 AM CDT Telemedicine [facility] [address] [place] [address] Gopal Luna PA-C [address] [facility] [address] [place] [address] documented as of this encounter Visit Diagnoses Not on filedocumented in this encounter Care Teams Spare Person Relationship Specialty Start Date End Date Nicolás [place] [address] [address] [facility] [address] [place] [address] PCP - General 02/07/11 documented as of this encounter
--- OUTSIDE RECORDS SUMMARY | 2024-03-01 08:17 | XMS_ITS | Encounter Summary ---
Author Name Unknown Organization [facility] Address [address], [place] [address] Care Team Providers Care Medical Laboratory Technician Name Role Phone Nicolás Fuentes MD Primary Care Provider Reason for Visit * Reason Comments Follow-up [facility] follow up appt percy goddard provider Encounter Details Date Type Department Care Team (Late st Contact Info) Description 01/18/2024 2:40 PM CDT Telemedicine [facility] [address] [facility] [address] [place], [place] [address] Gopal Luna PA-C [address] [facility] [address] [place], [place] [id number] Depressive disorder (Primary Dx); Obesity (BMI 30-39.9) ([facility]); LAP-BAND surgery status Social History Tobacco Use Types Packs/Day Years [...] CDT Height 170.2 cm (5' 7) 01/18/2024 12:54 PM CDT Body Mass Index 35.55 01/18/2024 12:54 PM CDT documented in this encounter Progress Notes * Gopal Luna PA-C - 01/18/2024 2:40 PM CDT Bariatric Surgery Post-Operative Follow Up DATE OF VISIT: 01/18/2024 This visit was conducted as telehealth visit using a synchronous audiovideo link. SUBJECTIVE: This 53 y.o. year-old female with chronic medical problems including obesity, history of depressionpresents for routine postoperative followup status post Adjustable Gastric Band. At last appointment patient was prescribed naltrexone to help reduce cravings and alcohol intake. She is not sure how effective medication was. She also did not explore potential surgical conversion options with her insurance. Patient states that today's appointment is my come to [place] with myself. She is teary at appointment, stating that her sister has recently been diagnosed with liver failure, and this has made her think of her own health. She states that some of her sister's health concerns are related to sister's history of bariatric surgery. Patient states that she feels she has not been fully invested in her health or lifestyle changes needed for success. She now feels ready to make changes to live her healthiest, best life. Bariatric Weight History and Calculations Weight History Starting Weight: 271 lb 14.4 oz Current Weight: 227 lb Height (in): 67 Weight Calculations Excess Weight: 127 lb 6.4 oz Current Weight Loss: 44 lb 14.4 oz Goal Weight: 144 lb 8 oz Starting BMI: 42.67 Percent Exess Weight Loss: 35 Current BMI: 35.63 Percent Totoal Body Weight Loss: 17 Date of Original Surgery: 03/08/2008 Type of Original Surgery: APS band Date of Revisional surgery: Type: None Previous medication trials for weight loss (or medications with the side effect of weight loss) include the following: Phentermine Topiramate Bupropion Naltrexone Food intolerances: none Focuses on eating protein at most meals: No Fluid intake averages 48-64 oz oz per day. REVIEW OF SYSTEMS: Patient is experiencing the following symptoms/problems: Diarrhea, Joint Pain PAST MEDICAL HISTORY: Past Medical History: Diagnosis Date Laparoscopic adjustable gastric band, APS 03/08/2008 Laparoscopic adjustable gastric band, APS 03/08/2008 Overweight(278.02) ([facility]) 11/05/2011 MEDICATIONS: cholecalciferol (AKA VITAMIN D3) 2000 UNITS tablet, Take 1,000 Tablets by mouth Daily., , Disp: , Rfl: levothyroxine (SYNTHROID) 137 MCG tablet, Take 1 Tablet (137 mcg) by mouth daily., Note (05/26/2017): Received from: [...] current facility-administered medications on file as of 01/18/2024. ADR/ALLERGIES: Other, Review contrast media, and Review food intolerance SOCIAL HISTORY: Social History Socioeconomic History Marital status: Single Spouse name: Not on file Number of children: Not on file Years of education: Not on file Highest education level: Not on file Occupational History Not on file Tobacco Use Smoking status: Never Smokeless tobacco: Never Vaping Use Vaping status: Never Used Substance and Sexual Activity Alcohol use: Yes [...] OBJECTIVE: Ht 5' 7 (170.2 cm) Wt 227 lb (897550 g) BMI 35.55 kg/m?? BMI: Estimated body mass index is 35.55 kg/m?? as calculated from the following: Height as of this encounter: 5' 7 (170.2 cm). Weight as of this encounter: 227 lb (866419 g). Vital Signs: There were no vitals [...] Depressive disorder F32.A 2. Obesity (BMI 30-39.9) ([facility]) E66.9 3. LAP-BAND surgery status Z98.84 PLAN: The patient is advised to increase/maintain exercise to a goal of at least 30 minutes 5 times a week. Increase naltrexone to 50 mg daily - take in the evening Bariatric psychology consult Recommendations: 1. Focus on not skipping meals, and including protein first at her meal times. Include nutrient rich snacks/bridges to next meal 1-2 times daily. 2. Schedule appointment with provider in bariatric center. Work on coping skills with regards to her stress management, decreased alcohol consumption, continued support of her sister during medical crisis. 3. Work on limiting alcohol consumption weekly, as a means of coping. 4. Make list of 3-4 alternatives to turning to food/alcohol when stressed. This could include reading, journaling, walking, taking a bath, meditating. Return to the clinic in 3 months, [...] location: clinic Total time for visit was 40 minutes including [id number] time spent reviewing medical records, counseling, documentation, placing orders, and coordination of care. Portion of lifestyle coachingand counseling completed by bariatric nurse clinician. Gopal Luna PA-C documented in this encounter Plan of Treatment Upcoming Encounters Date Type Department Care Team (Late st Contact Info) Description 04/18/2024 3:00 PM CDT Telemedicine [facility] [address] [place] [address] Gopal Luna PA-C [facility] [address] [address] 05/16/2024 10:00 AM CDT Telemedicine [facility] [address] [place] [address] Gopal Luna PA-C [facility] [address] [address] documented as of this encounter Visit Diagnoses Diagnosis Depressive disorder- Primary Depressive disorder, not elsewhere classified Obesity (BMI 30-39.9) ([facility]) Obesity, unspecified LAP-BAND surgery status Bariatric surgery status documented in this encounter Care Teams Medical Laboratory Technician Relationship Specialty Start Date End Date Nicolás [place] [address] [facility] [address] [place] [address] PCP - General 02/07/11 documented as of this encounter
== END 2024-03-01 08:12 | disposition home or self-care (01) ==
PROVIDERS: PCP Family Medicine; Visit Provider Internal Medicine
DX: E03.9 Hypothyroidism, unspecified (principal)
CPT/HCPCS: 80053; 82103

== ENCOUNTER 2025-02-02 10:41 | Outpatient (CLI) | payer BC, SELFPAY ==
--- NOTE | 2025-02-02 11:30 | CRLHL7_ITS ---
For Patients: As a result of the Century Cures Act, medical imaging exams and procedure reports are released immediately into your electronic medical record. You may view this report before your referring provider. If you have questions, please contact your health care provider. BILATERAL SCREENING MAMMOGRAM WITH COMPUTER-AIDED DETECTION AND TOMOSYNTHESIS TECHNIQUE: CC and MLO views were obtained. These mammographic images have been obtained using full-field digital technique. These mammographic images were interpreted with the benefit of computer-aided detection. Breast Tomosynthesis was used in this interpretation. COMPARISON FILM: 02/01/24, 09/10/21, 09/06/20. FINDINGS: There are scattered areas of fibroglandular density. IMPRESSION: There is no radiographic evidence for malignancy. ASSESSMENT: BI-RADS Category 1: Negative RECOMMENDATION: Routine screening mammogram in 1 year. A lay language report of this examination will be provided to the patient. Joe Gann M.D. Diagnostic Radiologist [email or web address] SP/Dictated by: Joe Gann MD @ 02/08/2025 10:24:00 AM (Electronically Signed)
== END 2025-02-02 10:42 | disposition home or self-care (01) ==
LOC: MAMMO 10:42
PROVIDERS: PCP Internal Medicine; Visit Provider Internal Medicine
DX: Z12.31 Encounter for screening mammogram for malignant neoplasm of breast (principal)
CPT/HCPCS: 77063; 77067

== ENCOUNTER 2025-02-05 07:41 | Outpatient (CLI) | payer BC, SELFPAY | END 2025-02-05 07:42 | disposition home or self-care (01) | LOC: NFLDREF 20:19 | PROVIDERS: PCP Internal Medicine; Referring Provider Family Medicine; Visit Provider Family Medicine | DX: E03.9 Hypothyroidism, unspecified (principal); E78.5 Hyperlipidemia, unspecified; E55.9 Vitamin D deficiency, unspecified; M81.0 Age-related osteoporosis without current pathological fracture | CPT/HCPCS: 80053; 80061; 82306; 84443 ==